=== PATIENT | male | born 1960 ===

== ENCOUNTER 2017-03-16 23:22 | Emergency (ER) | payer OTHER ==
[2017-03-16 23:38] VITALS: TEMP 98
--- NOTE | 2017-03-17 00:12 | C.PDOC ---
History Of Present Illness Patient c/o pain in his left ear that started 8 days ago. The pain is intermittent but does feel worse with chewing. He has discomfort across the left upper teeth and pain with chewing. He denies associated nasal congestion or discharge. He has no fever or chills. He denies any diminished hearing or associated tinnitus or dizziness or lightheadedness. He had a similar pain approximately 6 weeks ago. Time Seen by Provider: 03/16/17 23:33 Chief Complaint (Nursing): Headache History/Exam Limitations: no limitations Onset/Duration Of Symptoms: Days (8) Current Symptoms Are (Timing): Still Present Severity: Moderate Quality: Dull, Aching, "Pain" Preceeding Symptoms: None Associated Symptoms: denies: Blurred Vision, Nausea, Vomiting Past Medical History Vital Signs: Last Vital Signs Temp 98.0 F 03/16/17 23:35 Pulse 64 03/16/17 23:35 Resp 18 03/16/17 23:35 BP 199/92 H 03/16/17 23:35 Pulse Ox 98 03/16/17 23:35 - Medical History PMH: No Chronic Diseases Surgical History: No Surg Hx Family History: States: No Known Family Hx - Social History Hx Alcohol Use: No Hx Substance Use: No Review Of Systems Except As Marked, All Systems Reviewed And Found Negative. Constitutional: Negative for: Fever ENT: Positive for: Ear Pain. Negative for: Ear Discharge, Nose Discharge, Nose Congestion, Throat Pain Physical Exam - Physical Exam Appears: Well, No Acute Distress Skin: Normal Color, Warm, Dry Head: Atraumatic Eye(s): bilateral: Normal Inspection, PERRL, EOMI Ear(s): Bilateral: Normal Nose: Normal, No Discharge, No Tenderness Oral Mucosa: Moist Tongue: Normal Appearing Lips: Normal Appearing Teeth: Caries, Tender To Palpation (left upper gum line) Gingiva: Normal Appearing Throat: Normal Neck: Normal, Normal ROM Lymphatic: No Adenopathy Respiratory: Normal Breath Sounds Pulses: Left Carotid: Normal, Right Carotid: Normal Neurological/Psych: Oriented x3, Normal Speech, Normal Cognition, Normal Cranial Nerves ED Course And Treatment O2 Sat by Pulse Oximetry: 98 Disposition Counseled Patient/Family Regarding: Diagnosis, Need For Followup, Rx Given - Disposition Disposition: HOME/ ROUTINE Disposition Time: 00:15 Condition: STABLE Additional Instructions: Follow up with Dental clinic as soon as possible. Take Ibuprophen 2-3 tablets every 6 hours if needed for pain. Prescriptions: Acetaminophen with Codeine [Tylenol with Codeine #3 Tablet] 1 each PO Q4 PRN # 10 tablet PRN Reason: Pain, Severe (8-10) Amoxicillin 875 mg PO BID #14 tablet Instructions: Earache (ED), Dental Caries (ED) Forms: [employer] (Greek) Print Language: MALTESE - Clinical Impression Clinical Impression: Otalgia of left ear, Pain due to dental caries
[2017-03-17] MEDS ORDERED: Acetaminophen-Codeine 300/30 mg Tab PO STA (00:20)
[2017-03-17 00:21] VITALS: BP 171/81; PULSE 62; RESP 16; O2SAT 97
[2017-03-17] MEDS ORDERED: Acetaminophen-Codeine 300/30 mg Tab PO ONE (00:31)
== END 2017-03-17 00:40 | disposition home or self-care (01) ==
LOC: C.ER 23:22
DX: H92.02 Otalgia, left ear (principal); K02.9 Dental caries, unspecified